=== PATIENT | female | born 1955 | race African-American/Black ===

== ENCOUNTER 2025-03-26 11:19 | Inpatient (IN) | payer OTHER ==
[2025-03-26 13:55] LABS: HEMATOCRIT 20.2 % (34.1-44.9); RDW 16.5 % (12.4-16.6)
[2025-03-26 13:57] LABS: MCHC 29.7 g/dl (32.2-35.5); MEAN CELL VOLUME 97.1 fl (79.4-94.8); PLATELET COUNT 11 x10^3/uL (182-369)
[2025-03-26 14:24] LABS: MEAN CELL VOLUME 95.1 fl (79.4-94.8)
[2025-03-26 14:26] LABS: HEMATOCRIT 19.4 % (34.1-44.9); HEMOGLOBIN 5.9 g/dL (11.2-15.7); MCHC 30.4 g/dl (32.2-35.5); PLATELET COUNT 14 x10^3/uL (182-369); RDW 16.7 % (12.4-16.6)
[2025-03-26 14:31] LABS: INR 1.67 (0.83-1.09); PROTHROMBIN TIME (PATIENT) 18.4 SEC (9.7-13.0)
[2025-03-26 14:52] LABS: POTASSIUM 4.6 mmol/L (3.5-5.1)
[2025-03-26 14:54] LABS: CALCIUM 9.2 mg/dL (8.5-10.1)
[2025-03-26 14:55] LABS: ALBUMIN 2.5 g/dl (3.4-5.0); BLOOD UREA NITROGEN 15.9 mg/dL (7-18); MAGNESIUM 1.8 mg/dL (1.8-2.4)
[2025-03-26 14:58] LABS: CREATININE 0.8 mg/dL (0.55-1.3)
[2025-03-26 14:59] LABS: BILIRUBIN,TOTAL 0.5 mg/dL (0.2-1); TOT PROT 5.6 g/dl (6.4-8.2)
[2025-03-26] MEDS ORDERED: hydrALAZINE HCL 25 MG TABLET (FP) PO PRN (19:43)
[2025-03-26] MEDS: METOPROLOL TARTRATE 25 MG TABLET (FP) PO SCH (22:22)
[2025-03-26] MEDS: ACETAMINOPHEN 325 MG TABLET (FP) PO PRN (22:22)
[2025-03-27] MEDS: amLODIPine BESYLATE 5 MG TABLET (FP) PO SCH (09:48)
[2025-03-27] MEDS: LACTOBACILLUS ACIDOPHILUS 1 TABLET PO SCH (09:48)
[2025-03-27] MEDS: FERROUS SO4 325 MG TABLET (FP) PO SCH (09:48)
[2025-03-27 10:47] LABS: ABSOLUTE IMMATURE GRANULOCYTES 0.02 x10^3/uL (0.0-0.031); HEMATOCRIT 26.6 % (34.1-44.9); HEMOGLOBIN 8.2 g/dL (11.2-15.7); MCHC 30.8 g/dl (32.2-35.5); MEAN CELL VOLUME 89.9 fl (79.4-94.8); MONOCYTE # 0.13 x10^3/uL (0.24-0.86); MONOCYTE % 5.4 % (4.7-12.5); PLATELET COUNT 10 x10^3/uL (182-369); RDW 18.3 % (12.4-16.6)
[2025-03-27 11:07] LABS: POTASSIUM 4.3 mmol/L (3.5-5.1)
[2025-03-27 11:10] LABS: CALCIUM 9.8 mg/dL (8.5-10.1)
[2025-03-27 11:11] LABS: ALBUMIN 2.6 g/dl (3.4-5.0); MAGNESIUM 1.6 mg/dL (1.8-2.4)
[2025-03-27 11:14] LABS: CREATININE 0.6 mg/dL (0.55-1.3); PHOSPHOROUS 3.4 mg/dL (2.5-4.9)
[2025-03-27 11:15] LABS: BILIRUBIN,TOTAL 0.7 mg/dL (0.2-1); TOT PROT 5.8 g/dl (6.4-8.2)
[2025-03-27] MEDS: MAGNESIUM 2GM/50ML STERILE WATER IVPB IVPB ONE (13:16)
[2025-03-27] MEDS: DRONABINOL 5 MG CAPSULE PO SCH (18:40)
[2025-03-27 21:01] LABS: ABSOLUTE IMMATURE GRANULOCYTES 0.03 x10^3/uL (0.0-0.031); HEMATOCRIT 22.5 % (34.1-44.9); HEMOGLOBIN 7.2 g/dL (11.2-15.7); MEAN CELL VOLUME 88.9 fl (79.4-94.8); MONOCYTE # 0.09 x10^3/uL (0.24-0.86); PLATELET COUNT 8 x10^3/uL (182-369)
[2025-03-28 08:53] LABS: HEMATOCRIT 22.6 % (34.1-44.9); HEMOGLOBIN 7.1 g/dL (11.2-15.7); MCHC 31.4 g/dl (32.2-35.5); MEAN PLT VOLUME 10.4 fl (9.4-12.3); PLATELET COUNT 71 x10^3/uL (182-369); RDW 17.6 % (12.4-16.6)
[2025-03-28] MEDS: ONDANSETRON 4 MG/2 ML VIAL IVPUSH ONE (21:16)
[2025-03-29 09:15] LABS: HEMOGLOBIN 7.5 g/dL (11.2-15.7); RDW 17.3 % (12.4-16.6)
[2025-03-29 09:16] LABS: HEMATOCRIT 23.9 % (34.1-44.9); MCHC 31.4 g/dl (32.2-35.5); MEAN CELL VOLUME 90.9 fl (79.4-94.8); MEAN PLT VOLUME 9.2 fl (9.4-12.3); PLATELET COUNT 63 x10^3/uL (182-369)
[2025-03-29] MEDS: ONDANSETRON 4 MG/2 ML VIAL IVPUSH PRN (15:32)
[2025-03-30] MEDS: PANTOPRAZOLE 40 MG TABLET PO SCH (09:59)
[2025-03-31 07:19] LABS: HEMATOCRIT 25.5 % (34.1-44.9); MCHC 31.4 g/dl (32.2-35.5); MEAN CELL VOLUME 90.4 fl (79.4-94.8)
[2025-03-31 07:21] LABS: MEAN PLT VOLUME 9.4 fl (9.4-12.3); PLATELET COUNT 50 x10^3/uL (182-369); RDW 16.6 % (12.4-16.6)
[2025-03-31 07:35] LABS: POTASSIUM 3.3 mmol/L (3.5-5.1)
[2025-03-31 07:40] LABS: CALCIUM 9.3 mg/dL (8.5-10.1)
[2025-03-31 07:41] LABS: ALBUMIN 2.8 g/dl (3.4-5.0)
[2025-03-31 07:44] LABS: CREATININE 0.5 mg/dL (0.55-1.3)
[2025-03-31 07:45] LABS: BILIRUBIN,TOTAL 0.7 mg/dL (0.2-1)
[2025-03-31 07:46] LABS: TOT PROT 5.5 g/dl (6.4-8.2)
[2025-03-31 15:15] VITALS: BMI 17.2
[2025-03-31] MEDS: PANTOPRAZOLE SODIUM 40 MG VIAL IVPUSH SCH (16:19)
[2025-03-31] MEDS: SUCRALFATE 1 GM/10 ML UNIT DOSE CUPS PO SCH (16:20)
[2025-03-31] MEDS: METOCLOPRAMIDE HCL INJECTION 10 MG/2 ML VIAL IVPUSH PRN (16:20)
[2025-04-01 08:37] LABS: HEMATOCRIT 24.2 % (34.1-44.9); HEMOGLOBIN 7.7 g/dL (11.2-15.7); MCHC 31.8 g/dl (32.2-35.5); MEAN CELL VOLUME 89.3 fl (79.4-94.8); MEAN PLT VOLUME 9.8 fl (9.4-12.3); PLATELET COUNT 50 x10^3/uL (182-369)
[2025-04-01] MEDS: POTASSIUM CHLORIDE ORAL LIQUID 20 MEQ/15 ML PO ONE (09:37)
[2025-04-01] MEDS: PATIENT'S OWN MEDICATION (NON-FORMULARY) (Netarsudil Mesylat/Latanoprost [Rocklatan 0.02%- OU SCH (09:51)
[2025-04-01 11:49] LABS: ALBUMIN 2.8 g/dl (3.4-5.0); BILIRUBIN,TOTAL 0.5 mg/dL (0.2-1); BLOOD UREA NITROGEN 17.3 mg/dL (7-18); CALCIUM 9.6 mg/dL (8.5-10.1); CREATININE 0.6 mg/dL (0.55-1.3); POTASSIUM 3.2 mmol/L (3.5-5.1); TOT PROT 5.6 g/dl (6.4-8.2)
[2025-04-01 14:03] LABS: MAGNESIUM 1.6 mg/dL (1.8-2.4)
[2025-04-01 14:53] VITALS: RESP 18
[2025-04-01] MEDS: MAGNESIUM 2GM/50ML STERILE WATER IVPB IVPB ONE (15:18)
[2025-04-01] MEDS: LATANOPROST 0.005% OPHTH SOLN 2.5ML BOTTLE OU SCH (22:20)
[2025-04-01] MEDS: ZOLPIDEM TARTRATE 5 MG TABLET PO PRN (23:07)
[2025-04-02 09:44] LABS: RDW 17.2 % (12.4-16.6)
[2025-04-02 09:45] LABS: HEMATOCRIT 25.9 % (34.1-44.9); HEMOGLOBIN 8.2 g/dL (11.2-15.7); MCHC 31.7 g/dl (32.2-35.5); MEAN CELL VOLUME 91.5 fl (79.4-94.8); MEAN PLT VOLUME 10.1 fl (9.4-12.3); PLATELET COUNT 50 x10^3/uL (182-369)
[2025-04-02 09:57] LABS: INR 1.18 (0.83-1.09); PROTHROMBIN TIME (PATIENT) 12.9 SEC (9.7-13.0)
[2025-04-02 10:05] LABS: POTASSIUM 4.3 mmol/L (3.5-5.1)
[2025-04-02 10:09] LABS: ALBUMIN 2.9 g/dl (3.4-5.0); BLOOD UREA NITROGEN 19.6 mg/dL (7-18); CALCIUM 9.8 mg/dL (8.5-10.1)
[2025-04-02 10:10] LABS: MAGNESIUM 2.1 mg/dL (1.8-2.4)
[2025-04-02 10:13] LABS: CREATININE 0.7 mg/dL (0.55-1.3)
[2025-04-02 10:14] LABS: BILIRUBIN,TOTAL 0.6 mg/dL (0.2-1); TOT PROT 5.8 g/dl (6.4-8.2)
[2025-04-02 15:06] VITALS: BP 132/71; PULSE 64; TEMP 97.2
== END 2025-04-02 17:57 | DRG 808 ==
LOC: JER 11:19 → JERBED 15:20 → OBSVTOIN 15:20 → J5S 18:57
PROVIDERS: ADMIT Internal Medicine; ATTEND Internal Medicine
PROC: 30233N1 Transfusion of Nonautologous Red Blood Cells into Peripheral Vein, Percutaneous Approach (ICD-10-PCS; 2025-03-26)
PROC: 30233R1 Transfusion of Nonautologous Platelets into Peripheral Vein, Percutaneous Approach (ICD-10-PCS; principal; 2025-03-27)
DX: D61.810 Antineoplastic chemotherapy induced pancytopenia (principal); E43 Unspecified severe protein-calorie malnutrition; C56.9 Malignant neoplasm of unspecified ovary; R64 Cachexia; Z68.1 Body mass index [BMI] 19.9 or less, adult; K92.1 Melena; I10 Essential (primary) hypertension; R11.2 Nausea with vomiting, unspecified; K21.9 Gastro-esophageal reflux disease without esophagitis; D64.9 Anemia, unspecified; D69.6 Thrombocytopenia, unspecified; I48.91 Unspecified atrial fibrillation; Z97.8 Presence of other specified devices; Z86.711 Personal history of pulmonary embolism; Z98.84 Bariatric surgery status
CPT/HCPCS: 36415; 36430; 36511; 80053; 82272; 82607; 82746; 83540; 83550; 83735; 84100; 84439; 84443; 85025; 85610; 85730; 86850; 86900; 86901; 86922; 93005; 93010; 97116-GP; 97161-GP; 99291; P9037; P9038; P9058